=== PATIENT | male | born 1975 | race American Indian/Alaskan Native ===

== ENCOUNTER 2021-04-16 11:27 | Emergency (ER) | payer SELFPAY ==
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
[2021-04-16] MEDS ORDERED: CYCLOBENZAPRINE 10 MG TAB PO ONE (15:07)
[2021-04-16] MEDS ORDERED: IBUPROFEN 800 MG TAB PO ONE (15:07)
[2021-04-16] MEDS ORDERED: predniSONE 20 MG TAB PO NR (16:00)
[2021-04-16 17:23] VITALS: BP 146/92
== END 2021-04-16 17:33 | disposition home or self-care (01) ==
LOC: ED 11:27
DX: S32.009A Unspecified fracture of unspecified lumbar vertebra, initial encounter for closed fracture (principal); S39.012A Strain of muscle, fascia and tendon of lower back, initial encounter; M54.6 Pain in thoracic spine; Z79.899 Other long term (current) drug therapy; Z98.890 Other specified postprocedural states; V89.2XXA Person injured in unspecified motor-vehicle accident, traffic, initial encounter; Y93.89 Activity, other specified; Y92.488 Other paved roadways as the place of occurrence of the external cause; Y99.8 Other external cause status
CPT/HCPCS: 70450; 72125; 72131; 99283; J7512